=== PATIENT | male | born 1965 ===

== ENCOUNTER 2023-03-04 02:28 | Emergency (ER) | payer OTHER, SELFPAY ==
[2023-03-04] VITALS (45 sets, daily range): BP systolic 93–150; BP diastolic 65–100; PULSE 109–134; RESP 18–34; TEMP 36.7; O2SAT 87–97; BMI 46.7
--- NOTE | 2023-03-04 02:31 | ED.GENADULT ---
HPI - General Adult <Cathie Grubbs DO - Last Filed: 03/06/23 23:47> General Chief complaint: Shortness of Breath/Dyspnea Stated complaint: asthma Time Seen by Provider: 03/04/23 02:31 Source: patient Mode of arrival: Ambulatory Limitations: no limitations History of Present Illness HPI narrative: 57-year-old male without prior cardiac history. States that several weeks ago he started to have problems breathing. Was having some wheezing. Saw his primary provider. States he was given a nebulizer and also inhalers and a referral to see a maintenance inspector. He is never had a chest x-ray or CT scan of his chest. He states that a couple days ago he started to have worsening problems breathing that has progressively worsened over the past several hours. No coughing. No fevers. He states he does feel like he is having some bloating in his abdomen. He denies any chest pain. No recent travel. No fevers. No sinus congestion. He states he is not been tested for viral illnesses. He tried his nebulizers and inhalers at home without much improvement. He states he is feeling like his heart is racing and is very shaky because of the albuterol. Related Data Home Medications Medication Instructions Recorded Confirmed lisinopril 03/04/23 Allergies Allergy/AdvReac Type Severity Reaction Status Date / Time No Known Drug Allergies Allergy Verified 03/04/23 02:56 Review of Systems <DO Ling Joseph Last Filed: 03/06/23 23:47> Review of Systems ROS Unobtainable: All systems reviewed & are unremarkable except as noted in HPI and below Patient History <DO Ling Joseph Last Filed: 03/06/23 23:47> Medical History Hypertension Social History Smoking Status: Never smoker Exam <DO Ling Joseph Last Filed: 03/06/23 23:47> Initial Vital Signs Initial Vital Signs: Vital Signs Temperature 98.1 F 03/04/23 02:36 Pulse Rate 125 H 03/04/23 02:36 Respiratory Rate 28 H 03/04/23 02:36 Blood Pressure 129/91 H 03/04/23 02:36 Pulse Oximetry 94 03/04/23 02:36 Oxygen Delivery Method Room Air 03/04/23 02:36 Const General: cooperative, comfortable and No ill appearing HENMT Head: normal to inspection and normocephalic Resp Effort & Inspection: respiratory distress and tachypneic Auscultation: wheezes Cardio Rate: tachycardic Rhythm: regular rhythm GI Inspection: normal to inspection and non-distended Skin General: no rashes or lesions noted Neuro General: patient alert, patient awake, patient oriented x3 and moves all extremities Speech: speech normal Gait: normal gait Extrem General: No edema <Marga Marie, DO - Last Filed: 03/04/23 19:24> Initial Vital Signs Initial Vital Signs: Vital Signs Temperature 98.1 F 03/04/23 02:36 Pulse Rate 125 H 03/04/23 02:36 Respiratory Rate 28 H 03/04/23 02:36 Blood Pressure 129/91 H 03/04/23 02:36 Pulse Oximetry 94 03/04/23 02:36 Oxygen Delivery Method Room Air 03/04/23 02:36 Course <Cathie Grubbs DO - Last Filed: 03/06/23 23:47> Orders Ordered: Discontinued Medications Acetaminophen (Acetaminophen 325 Mg Tablet) 650 mg PO NOW ONE Stop: 03/04/23 18:20 Last Admin: 03/04/23 19:04 Dose: 650 mg Documented By: HEATHER Albuterol/Ipratropium (Albuterol/Ipratropium 3 Ml Ampul) 3 ml INH NOW ONE Stop: 03/04/23 02:38 Last Admin: 03/04/23 02:45 Dose: 3 ml Documented By: CHAU Aspirin (Aspirin 81 Mg Chew Tab) 324 mg PO NOW ONE Stop: 03/04/23 03:43 Last Admin: 03/04/23 04:02 Dose: 324 mg Documented By: JOE Diazepam (Diazepam 5 Mg Tablet) 5 mg PO NOW ONE Stop: 03/04/23 18:20 Last Admin: 03/04/23 19:04 Dose: 5 mg Documented By: HEATHER Furosemide (Furosemide 40 Mg/4 Ml Vial) 40 mg IV NOW ONE Stop: 03/04/23 03:49 Last Admin: 03/04/23 03:58 Dose: 40 mg Documented By: JOE Furosemide (Furosemide 40 Mg/4 Ml Vial) 40 mg IV NOW ONE Stop: 03/04/23 14:30 Last Admin: 03/04/23 14:47 Dose: 40 mg Documented By: HEATHER Heparin Sodium (Porcine) (Heparin 5,000 Unit/Ml Vial) 5,000 unit IV NOW ONE Stop: 03/04/23 03:50 Last Admin: 03/04/23 03:59 Dose: 5,000 unit Documented By: JOE Azithromycin 500 mg/ Dextrose 250 mls @ 250 mls/hr IV NOW ONE Stop: 03/04/23 03:44 Last Infusion: 03/04/23 06:35 Dose: 0 mls/hr Documented By: Admin: 03/04/23 04:51 Dose: 250 mls/hr Documented By: JOE Ceftriaxone Sodium 1,000 mg/ (Sodium Chloride) 100 mls @ 200 mls/hr IV NOW ONE Stop: 03/04/23 03:44 Last Infusion: 03/04/23 05:39 Dose: 0 mls/hr Documented By: Admin: 03/04/23 03:58 Dose: 200 mls/hr Documented By: JOE Heparin Sodium/Dextrose (Heparin Drip) 25,000 unit in 500 mls @ 20 mls/hr IV CONT KARI; Protocol Last Titration: 03/04/23 16:30 Dose: 1,050 units/hr, 21 mls/hr Documented By: HEATHER Co-signed By: COLETTE Admin: 03/04/23 04:09 Dose: 1,000 units/hr, 20 mls/hr Documented By: JOE Co-signed By: TEDDY Methylprednisolone (Methylprednisolone 125 Mg/2 Ml Vial) 125 mg IV NOW ONE Stop: 03/04/23 02:38 Last Admin: 03/04/23 02:55 Dose: 125 mg Documented By: JOE Vital Signs Vital signs: Vital Signs - 8 hr 03/04/23 11:29 03/04/23 11:29 03/04/23 11:30 Pulse Rate 113 H Respiratory Rate 25 H Blood Pressure 119/87 121/88 Pulse Oximetry 96 Oxygen Delivery Method Oxygen Flow Rate 03/04/23 11:30 03/04/23 12:00 03/04/23 12:00 Pulse Rate 116 H 113 H Respiratory Rate 25 H 25 H Blood Pressure 119/81 Pulse Oximetry 96 96 Oxygen Delivery Method Oxygen Flow Rate 03/04/23 12:30 03/04/23 12:40 03/04/23 12:40 Pulse Rate 120 H 116 H Respiratory Rate 26 H 24 Blood Pressure 132/100 H Pulse Oximetry 96 96 Oxygen Delivery Method Oxygen Flow Rate 03/04/23 13:00 03/04/23 13:00 03/04/23 13:30 Pulse Rate 109 H Respiratory Rate 29 H Blood Pressure 134/97 H 137/98 H Pulse Oximetry 97 Oxygen Delivery Method Oxygen Flow Rate 03/04/23 13:30 03/04/23 14:00 03/04/23 14:00 Pulse Rate 112 H 112 H Respiratory Rate 26 H 29 H Blood Pressure 124/89 Pulse Oximetry 93 94 Oxygen Delivery Method Oxygen Flow Rate 03/04/23 14:30 03/04/23 15:00 03/04/23 15:00 Pulse Rate 114 H 117 H Respiratory Rate 32 H 20 Blood Pressure 142/89 H Pulse Oximetry 95 96 Oxygen Delivery Method Nasal Cannula Oxygen Flow Rate 2 03/04/23 15:30 03/04/23 16:00 03/04/23 16:00 Pulse Rate 118 H 120 H Respiratory Rate 25 H 24 Blood Pressure 131/85 Pulse Oximetry 95 95 Oxygen Delivery Method Oxygen Flow Rate 03/04/23 16:30 03/04/23 17:00 03/04/23 17:30 Pulse Rate 120 H 130 H 121 H Respiratory Rate 20 27 H 22 Blood Pressure Pulse Oximetry 96 95 96 Oxygen Delivery Method Nasal Cannula Nasal Cannula Oxygen Flow Rate 2 2 03/04/23 18:00 03/04/23 18:30 03/04/23 19:00 Pulse Rate 114 H 124 H 125 H Respiratory Rate 26 H 28 H 26 H Blood Pressure Pulse Oximetry 94 96 96 Oxygen Delivery Method Nasal Cannula Nasal Cannula Oxygen Flow Rate 2 2 <Marga Marie, - Last Filed: 03/04/23 19:24> Orders Ordered: Discontinued Medications Acetaminophen (Acetaminophen 325 Mg Tablet) 650 mg PO NOW ONE Stop: 03/04/23 18:20 Last Admin: 03/04/23 19:04 Dose: 650 mg Documented By: HEATHER Albuterol/Ipratropium (Albuterol/Ipratropium 3 Ml Ampul) 3 ml INH NOW ONE Stop: 03/04/23 02:38 Last Admin: 03/04/23 02:45 Dose: 3 ml Documented By: CHAU Aspirin (Aspirin 81 Mg Chew Tab) 324 mg PO NOW ONE Stop: 03/04/23 03:43 Last Admin: 03/04/23 04:02 Dose: 324 mg Documented By: JOE Diazepam (Diazepam 5 Mg Tablet) 5 mg PO NOW ONE Stop: 03/04/23 18:20 Last Admin: 03/04/23 19:04 Dose: 5 mg Documented By: HEATHER Furosemide (Furosemide 40 Mg/4 Ml Vial) 40 mg IV NOW ONE Stop: 03/04/23 03:49 Last Admin: 03/04/23 03:58 Dose: 40 mg Documented By: JOE Furosemide (Furosemide 40 Mg/4 Ml Vial) 40 mg IV NOW ONE Stop: 03/04/23 14:30 Last Admin: 03/04/23 14:47 Dose: 40 mg Documented By: HEATHER Heparin Sodium (Porcine) (Heparin 5,000 Unit/Ml Vial) 5,000 unit IV NOW ONE Stop: 03/04/23 03:50 Last Admin: 03/04/23 03:59 Dose: 5,000 unit Documented By: JOE Azithromycin 500 mg/ Dextrose 250 mls @ 250 mls/hr IV NOW ONE Stop: 03/04/23 03:44 Last Infusion: 03/04/23 06:35 Dose: 0 mls/hr Documented By: Admin: 03/04/23 04:51 Dose: 250 mls/hr Documented By: JOE Ceftriaxone Sodium 1,000 mg/ (Sodium Chloride) 100 mls @ 200 mls/hr IV NOW ONE Stop: 03/04/23 03:44 Last Infusion: 03/04/23 05:39 Dose: 0 mls/hr Documented By: Admin: 03/04/23 03:58 Dose: 200 mls/hr Documented By: JOE Heparin Sodium/Dextrose (Heparin Drip) 25,000 unit in 500 mls @ 20 mls/hr IV CONT KARI; Protocol Last Titration: 03/04/23 16:30 Dose: 1,050 units/hr, 21 mls/hr Documented By: HEATHER Co-signed By: COLETTE Admin: 03/04/23 04:09 Dose: 1,000 units/hr, 20 mls/hr Documented By: JOE Co-signed By: TEDDY Methylprednisolone (Methylprednisolone 125 Mg/2 Ml Vial) 125 mg IV NOW ONE Stop: 03/04/23 02:38 Last Admin: 03/04/23 02:55 Dose: 125 mg Documented By: JOE Vital Signs Vital signs: Vital Signs - 8 hr 03/04/23 11:29 03/04/23 11:29 03/04/23 11:30 Pulse Rate 113 H Respiratory Rate 25 H Blood Pressure 119/87 121/88 Pulse Oximetry 96 Oxygen Delivery Method Oxygen Flow Rate 03/04/23 11:30 03/04/23 12:00 03/04/23 12:00 Pulse Rate 116 H 113 H Respiratory Rate 25 H 25 H Blood Pressure 119/81 Pulse Oximetry 96 96 Oxygen Delivery Method Oxygen Flow Rate 03/04/23 12:30 03/04/23 12:40 03/04/23 12:40 Pulse Rate 120 H 116 H Respiratory Rate 26 H 24 Blood Pressure 132/100 H Pulse Oximetry 96 96 Oxygen Delivery Method Oxygen Flow Rate 03/04/23 13:00 03/04/23 13:00 03/04/23 13:30 Pulse Rate 109 H Respiratory Rate 29 H Blood Pressure 134/97 H 137/98 H Pulse Oximetry 97 Oxygen Delivery Method Oxygen Flow Rate 03/04/23 13:30 03/04/23 14:00 03/04/23 14:00 Pulse Rate 112 H 112 H Respiratory Rate 26 H 29 H Blood Pressure 124/89 Pulse Oximetry 93 94 Oxygen Delivery Method Oxygen Flow Rate 03/04/23 14:30 03/04/23 15:00 03/04/23 15:00 Pulse Rate 114 H 117 H Respiratory Rate 32 H 20 Blood Pressure 142/89 H Pulse Oximetry 95 96 Oxygen Delivery Method Nasal Cannula Oxygen Flow Rate 2 03/04/23 15:30 03/04/23 16:00 03/04/23 16:00 Pulse Rate 118 H 120 H Respiratory Rate 25 H 24 Blood Pressure 131/85 Pulse Oximetry 95 95 Oxygen Delivery Method Oxygen Flow Rate 03/04/23 16:30 03/04/23 17:00 03/04/23 17:30 Pulse Rate 120 H 130 H 121 H Respiratory Rate 20 27 H 22 Blood Pressure Pulse Oximetry 96 95 96 Oxygen Delivery Method Nasal Cannula Nasal Cannula Oxygen Flow Rate 2 2 03/04/23 18:00 03/04/23 18:30 03/04/23 19:00 Pulse Rate 114 H 124 H 125 H Respiratory Rate 26 H 28 H 26 H Blood Pressure Pulse Oximetry 94 96 96 Oxygen Delivery Method Nasal Cannula Nasal Cannula Oxygen Flow Rate 2 2 Medical Decision Making <Cathie Grubbs DO - Last Filed: 03/06/23 23:47> Medical Records Medical records reviewed: Yes I reviewed the patient's medical records. Lab Data Lab results reviewed: Yes I reviewed the patient's lab results. 03/04/23 14:39 03/04/23 14:39 Labs: Lab Results 03/04/23 03/04/23 03/04/23 Range/Units 02:45 02:45 02:45 WBC 16.0 H (4.5-11.0) X10^3/uL RBC 5.01 (4.5-5.9) X10^6/uL Hgb 13.7 (13.5-17.5) g/dL Hct 40.8 L (41-53) % MCV 81.4 (80-100) fL MCH 27.4 (26-34) PG MCHC 33.7 (30-36) % RDW 13.6 (11.6-14.8) % Plt Count 350 (150-400) X10^3/uL Neut % (Auto) 70.7 (50-75) % Lymph % (Auto) 15.9 L (25-40) % [place] % (Auto) 10.5 (3-14) % Eos % (Auto) 1.9 L (2-4) % Baso % (Auto) 1.0 (0-2) % Neut # (Auto) 83876 H (8414-7571) /uL Lymph # (Auto) 2500 (8125-2180) /uL [place] # (Auto) 1700 H (0-900) /uL Eos # (Auto) 300 (0-450) /uL Baso # (Auto) 200 H (0-100) /uL PT (10.1-12.7) SECONDS INR (0.9-1.3) APTT (26-36) SECONDS Sodium 134 L (137-145) mmol/L Potassium 3.8 (3.4-5.1) mmol/L Chloride 103 (98-107) mmol/L Carbon Dioxide 23 (22-32) mmol/L BUN 10 (9-20) mg/dL Creatinine 0.83 (0.66-1.25) mg/dL Estimated GFR > 60 (>60) mL/min BUN/Creatinine Ratio 12.0 (6-22) Glucose 217 H (70-100) mg/dL Calcium 8.7 (8.4-10.2) mg/dL Magnesium 1.5 L (1.6-2.3) mg/dL Total Bilirubin 0.8 (0.2-1.3) mg/dL AST 31 (17-59) IU/L ALT 21 (<50) IU/L Alkaline Phosphatase 71 (38-126) U/L Total Creatine Kinase 606 H (55-170) U/L Troponin I 0.414 H* (0.01-0.034) ng/mL NT-Pro-B Natriuret Pep 5070 H (<125) pg/mL Total Protein 7.0 (6.3-8.2) g/dL Albumin 3.8 (3.5-5.0) g/dL Globulin 3.2 (1.7-4.1) g/dL Albumin/Globulin Ratio 1.2 (1.0-2.8) Lipase 61 (23-300) U/L Procalcitonin 0.08 (<0.5) ng/mL Chlamy pneumoniae PCR (Not Detect) Adenovirus (PCR) (Not Detect) B. pertussis DNA (PCR) (Not Detecte) B.parapertussis DNA PCR (Not Detecte) Coronavirus OC43 (PCR) (Not Detect) Coronavirus HKU1 (PCR) (Not Detect) Coronavirus 229E (PCR) (Not Detect) SARS-CoV-2 (PCR) (Not Detecte) Coronavirus NL63 (PCR) (Not Detect) Human Metapneumovir PCR (Not Detect) Influenza Type A (PCR) (Not Detect) Influenza Type B (PCR) (Not Detect) M. pneumoniae (PCR) (Not Detect) Parainfluenza 1 (PCR) (Not Detect) Parainfluenza 2 (PCR) (Not Detect) Parainfluenza 3 (PCR) (Not Detect) Parainfluenza 4 (PCR) (Not Detect) RSV (PCR) (Not Detect) Entero/Rhino (PCR) (Not Detect) 03/04/23 03/04/23 03/04/23 Range/Units 02:45 03:10 04:50 WBC (4.5-11.0) X10^3/uL RBC (4.5-5.9) X10^6/uL Hgb (13.5-17.5) g/dL Hct (41-53) % MCV (80-100) fL MCH (26-34) PG MCHC (30-36) % RDW (11.6-14.8) % Plt Count (150-400) X10^3/uL Neut % (Auto) (50-75) % Lymph % (Auto) (25-40) % [place] % (Auto) (3-14) % Eos % (Auto) (2-4) % Baso % (Auto) (0-2) % Neut # (Auto) (0038-2054) /uL Lymph # (Auto) (4809-5713) /uL [place] # (Auto) (0-900) /uL Eos # (Auto) (0-450) /uL Baso # (Auto) (0-100) /uL PT 12.2 (10.1-12.7) SECONDS INR 1.1 (0.9-1.3) APTT 30 (26-36) SECONDS Sodium (137-145) mmol/L Potassium (3.4-5.1) mmol/L Chloride (98-107) mmol/L Carbon Dioxide (22-32) mmol/L BUN (9-20) mg/dL Creatinine (0.66-1.25) mg/dL Estimated GFR (>60) mL/min BUN/Creatinine Ratio (6-22) Glucose (70-100) mg/dL Calcium (8.4-10.2) mg/dL Magnesium (1.6-2.3) mg/dL Total Bilirubin (0.2-1.3) mg/dL AST (17-59) IU/L ALT (<50) IU/L Alkaline Phosphatase (38-126) U/L Total Creatine Kinase 604 H (55-170) U/L Troponin I 0.467 H* (0.01-0.034) ng/mL NT-Pro-B Natriuret Pep (<125) pg/mL Total Protein (6.3-8.2) g/dL Albumin (3.5-5.0) g/dL Globulin (1.7-4.1) g/dL Albumin/Globulin Ratio (1.0-2.8) Lipase (23-300) U/L Procalcitonin (<0.5) ng/mL Chlamy pneumoniae PCR Not detected (Not Detect) Adenovirus (PCR) Not detected (Not Detect) B. pertussis DNA (PCR) Not detected (Not Detecte) B.parapertussis DNA PCR Not detected (Not Detecte) Coronavirus OC43 (PCR) Not detected (Not Detect) Coronavirus HKU1 (PCR) Not detected (Not Detect) Coronavirus 229E (PCR) Not detected (Not Detect) SARS-CoV-2 (PCR) Not detected (Not Detecte) Coronavirus NL63 (PCR) Not detected (Not Detect) Human Metapneumovir PCR Not detected (Not Detect) Influenza Type A (PCR) Not detected (Not Detect) Influenza Type B (PCR) Not detected (Not Detect) M. pneumoniae (PCR) Not detected (Not Detect) Parainfluenza 1 (PCR) Not detected (Not Detect) Parainfluenza 2 (PCR) Not detected (Not Detect) Parainfluenza 3 (PCR) Not detected (Not Detect) Parainfluenza 4 (PCR) Not detected (Not Detect) RSV (PCR) Not detected (Not Detect) Entero/Rhino (PCR) Not detected (Not Detect) 03/04/23 03/04/23 03/04/23 Range/Units 10:14 14:39 14:39 WBC 8.8 (4.5-11.0) X10^3/uL RBC 4.97 (4.5-5.9) X10^6/uL Hgb 13.9 (13.5-17.5) g/dL Hct 40.9 L (41-53) % MCV 82.1 (80-100) fL MCH 28.0 (26-34) PG MCHC 34.0 (30-36) % RDW 13.7 (11.6-14.8) % Plt Count 361 (150-400) X10^3/uL Neut % (Auto) 85.2 H (50-75) % Lymph % (Auto) 11.7 L (25-40) % [place] % (Auto) 2.5 L (3-14) % Eos % (Auto) 0.0 L (2-4) % Baso % (Auto) 0.6 (0-2) % Neut # (Auto) 7500 H (4602-2772) /uL Lymph # (Auto) 1000 L (9326-8627) /uL [place] # (Auto) 200 (0-900) /uL Eos # (Auto) 0 (0-450) /uL Baso # (Auto) 100 (0-100) /uL PT (10.1-12.7) SECONDS INR (0.9-1.3) APTT 35 D (26-36) SECONDS Sodium 133 L (137-145) mmol/L Potassium 4.0 (3.4-5.1) mmol/L Chloride 97 L (98-107) mmol/L Carbon Dioxide 26 (22-32) mmol/L BUN 10 (9-20) mg/dL Creatinine 0.68 (0.66-1.25) mg/dL Estimated GFR > 60 (>60) mL/min BUN/Creatinine Ratio 14.7 (6-22) Glucose 240 H (70-100) mg/dL Calcium 8.7 (8.4-10.2) mg/dL Magnesium (1.6-2.3) mg/dL Total Bilirubin (0.2-1.3) mg/dL AST (17-59) IU/L ALT (<50) IU/L Alkaline Phosphatase (38-126) U/L Total Creatine Kinase (55-170) U/L Troponin I 0.652 H* (0.01-0.034) ng/mL NT-Pro-B Natriuret Pep (<125) pg/mL Total Protein (6.3-8.2) g/dL Albumin (3.5-5.0) g/dL Globulin (1.7-4.1) g/dL Albumin/Globulin Ratio (1.0-2.8) Lipase (23-300) U/L Procalcitonin (<0.5) ng/mL Chlamy pneumoniae PCR (Not Detect) Adenovirus (PCR) (Not Detect) B. pertussis DNA (PCR) (Not Detecte) B.parapertussis DNA PCR (Not Detecte) Coronavirus OC43 (PCR) (Not Detect) Coronavirus HKU1 (PCR) (Not Detect) Coronavirus 229E (PCR) (Not Detect) SARS-CoV-2 (PCR) (Not Detecte) Coronavirus NL63 (PCR) (Not Detect) Human Metapneumovir PCR (Not Detect) Influenza Type A (PCR) (Not Detect) Influenza Type B (PCR) (Not Detect) M. pneumoniae (PCR) (Not Detect) Parainfluenza 1 (PCR) (Not Detect) Parainfluenza 2 (PCR) (Not Detect) Parainfluenza 3 (PCR) (Not Detect) Parainfluenza 4 (PCR) (Not Detect) RSV (PCR) (Not Detect) Entero/Rhino (PCR) (Not Detect) 03/04/23 Range/Units 16:27 WBC (4.5-11.0) X10^3/uL RBC (4.5-5.9) X10^6/uL Hgb (13.5-17.5) g/dL Hct (41-53) % MCV (80-100) fL MCH (26-34) PG MCHC (30-36) % RDW (11.6-14.8) % Plt Count (150-400) X10^3/uL Neut % (Auto) (50-75) % Lymph % (Auto) (25-40) % [place] % (Auto) (3-14) % Eos % (Auto) (2-4) % Baso % (Auto) (0-2) % Neut # (Auto) (8131-1880) /uL Lymph # (Auto) (5658-9296) /uL [place] # (Auto) (0-900) /uL Eos # (Auto) (0-450) /uL Baso # (Auto) (0-100) /uL PT (10.1-12.7) SECONDS INR (0.9-1.3) APTT 35 (26-36) SECONDS Sodium (137-145) mmol/L Potassium (3.4-5.1) mmol/L Chloride (98-107) mmol/L Carbon Dioxide (22-32) mmol/L BUN (9-20) mg/dL Creatinine (0.66-1.25) mg/dL Estimated GFR (>60) mL/min BUN/Creatinine Ratio (6-22) Glucose (70-100) mg/dL Calcium (8.4-10.2) mg/dL Magnesium (1.6-2.3) mg/dL Total Bilirubin (0.2-1.3) mg/dL AST (17-59) IU/L ALT (<50) IU/L Alkaline Phosphatase (38-126) U/L Total Creatine Kinase (55-170) U/L Troponin I (0.01-0.034) ng/mL NT-Pro-B Natriuret Pep (<125) pg/mL Total Protein (6.3-8.2) g/dL Albumin (3.5-5.0) g/dL Globulin (1.7-4.1) g/dL Albumin/Globulin Ratio (1.0-2.8) Lipase (23-300) U/L Procalcitonin (<0.5) ng/mL Chlamy pneumoniae PCR (Not Detect) Adenovirus (PCR) (Not Detect) B. pertussis DNA (PCR) (Not Detecte) B.parapertussis DNA PCR (Not Detecte) Coronavirus OC43 (PCR) (Not Detect) Coronavirus HKU1 (PCR) (Not Detect) Coronavirus 229E (PCR) (Not Detect) SARS-CoV-2 (PCR) (Not Detecte) Coronavirus NL63 (PCR) (Not Detect) Human Metapneumovir PCR (Not Detect) Influenza Type A (PCR) (Not Detect) Influenza Type B (PCR) (Not Detect) M. pneumoniae (PCR) (Not Detect) Parainfluenza 1 (PCR) (Not Detect) Parainfluenza 2 (PCR) (Not Detect) Parainfluenza 3 (PCR) (Not Detect) Parainfluenza 4 (PCR) (Not Detect) RSV (PCR) (Not Detect) Entero/Rhino (PCR) (Not Detect) Imaging Data Chest x-ray: Radiologist's Impression: Bilateral areas of airspace disease likely representing multifocal pneumonia. Posttreatment follow-up is recommended to assess for resolution CT scan - chest: Radiologist's Impression: No pulmonary embolism or aortic dissection Multifocal bilateral pulmonary infiltrates. Recommend 3 month follow-up CT scan Bilateral pulmonary nodules measuring up to 8 mm Thickening of the inner and interlobar septa and small bilateral pleural effusions suggesting pulmonary edema/volume overload Ectasia of the ascending thoracic aorta which measures 4.4 cm in maximum anterior-posterior dimension. ECG Data Interpretation: Sinus tachycardia Ventricular rate 122 LVH Normal QRS Normal QTC ST depressions lead 1, aVL, V6 No ST elevations MDM Narrative Medical decision making narrative: Patient has no prior cardiac history and only recently had a development of a respiratory issue. He stated that he did some cardiac workup recently but this was performed at an outside facility in [facility]. We will attempt to obtain these records. Here in the emergency department he did have an elevated BNP. No prior history of heart failure. He was given Lasix and did diurese afterwards. He was given a nebulizer treatment with only minimal if any improvement. Chest x-ray concerning for patchy bilateral pneumonia. Because of this he was given azithromycin and Rocephin. He does have a leukocytosis which supports an infectious source. Patient's troponin is also elevated. He has no chest pain. Does have T-wave inversions in lead 1 aVL and V6 without ST elevations. He was given an aspirin. Was started on heparin. CTA did not show any signs of pneumonia. It did show bilateral pulmonary nodules and also confirms the infiltrates. Discussed the case with Dr. Gilbert with cardiology who recommended echocardiogram and treatment of his fluid overload and pneumonia prior to any transfer. Care turned over to Dr. marie to follow-up and disposition. <Marga Marie, - Last Filed: 03/04/23 19:24> Lab Data Labs: Lab Results 03/04/23 03/04/23 03/04/23 Range/Units 02:45 02:45 02:45 WBC 16.0 H (4.5-11.0) X10^3/uL RBC 5.01 (4.5-5.9) X10^6/uL Hgb 13.7 (13.5-17.5) g/dL Hct 40.8 L (41-53) % MCV 81.4 (80-100) fL MCH 27.4 (26-34) PG MCHC 33.7 (30-36) % RDW 13.6 (11.6-14.8) % Plt Count 350 (150-400) X10^3/uL Neut % (Auto) 70.7 (50-75) % Lymph % (Auto) 15.9 L (25-40) % [place] % (Auto) 10.5 (3-14) % Eos % (Auto) 1.9 L (2-4) % Baso % (Auto) 1.0 (0-2) % Neut # (Auto) 89485 H (0609-3031) /uL Lymph # (Auto) 2500 (4490-1742) /uL [place] # (Auto) 1700 H (0-900) /uL Eos # (Auto) 300 (0-450) /uL Baso # (Auto) 200 H (0-100) /uL PT (10.1-12.7) SECONDS INR (0.9-1.3) APTT (26-36) SECONDS Sodium 134 L (137-145) mmol/L Potassium 3.8 (3.4-5.1) mmol/L Chloride 103 (98-107) mmol/L Carbon Dioxide 23 (22-32) mmol/L BUN 10 (9-20) mg/dL Creatinine 0.83 (0.66-1.25) mg/dL Estimated GFR > 60 (>60) mL/min BUN/Creatinine Ratio 12.0 (6-22) Glucose 217 H (70-100) mg/dL Calcium 8.7 (8.4-10.2) mg/dL Magnesium 1.5 L (1.6-2.3) mg/dL Total Bilirubin 0.8 (0.2-1.3) mg/dL AST 31 (17-59) IU/L ALT 21 (<50) IU/L Alkaline Phosphatase 71 (38-126) U/L Total Creatine Kinase 606 H (55-170) U/L Troponin I 0.414 H* (0.01-0.034) ng/mL NT-Pro-B Natriuret Pep 5070 H (<125) pg/mL Total Protein 7.0 (6.3-8.2) g/dL Albumin 3.8 (3.5-5.0) g/dL Globulin 3.2 (1.7-4.1) g/dL Albumin/Globulin Ratio 1.2 (1.0-2.8) Lipase 61 (23-300) U/L Procalcitonin 0.08 (<0.5) ng/mL Chlamy pneumoniae PCR (Not Detect) Adenovirus (PCR) (Not Detect) B. pertussis DNA (PCR) (Not Detecte) B.parapertussis DNA PCR (Not Detecte) Coronavirus OC43 (PCR) (Not Detect) Coronavirus HKU1 (PCR) (Not Detect) Coronavirus 229E (PCR) (Not Detect) SARS-CoV-2 (PCR) (Not Detecte) Coronavirus NL63 (PCR) (Not Detect) Human Metapneumovir PCR (Not Detect) Influenza Type A (PCR) (Not Detect) Influenza Type B (PCR) (Not Detect) M. pneumoniae (PCR) (Not Detect) Parainfluenza 1 (PCR) (Not Detect) Parainfluenza 2 (PCR) (Not Detect) Parainfluenza 3 (PCR) (Not Detect) Parainfluenza 4 (PCR) (Not Detect) RSV (PCR) (Not Detect) Entero/Rhino (PCR) (Not Detect) 03/04/23 03/04/23 03/04/23 Range/Units 02:45 03:10 04:50 WBC (4.5-11.0) X10^3/uL RBC (4.5-5.9) X10^6/uL Hgb (13.5-17.5) g/dL Hct (41-53) % MCV (80-100) fL MCH (26-34) PG MCHC (30-36) % RDW (11.6-14.8) % Plt Count (150-400) X10^3/uL Neut % (Auto) (50-75) % Lymph % (Auto) (25-40) % [place] % (Auto) (3-14) % Eos % (Auto) (2-4) % Baso % (Auto) (0-2) % Neut # (Auto) (3663-7866) /uL Lymph # (Auto) (5300-2313) /uL [place] # (Auto) (0-900) /uL Eos # (Auto) (0-450) /uL Baso # (Auto) (0-100) /uL PT 12.2 (10.1-12.7) SECONDS INR 1.1 (0.9-1.3) APTT 30 (26-36) SECONDS Sodium (137-145) mmol/L Potassium (3.4-5.1) mmol/L Chloride (98-107) mmol/L Carbon Dioxide (22-32) mmol/L BUN (9-20) mg/dL Creatinine (0.66-1.25) mg/dL Estimated GFR (>60) mL/min BUN/Creatinine Ratio (6-22) Glucose (70-100) mg/dL Calcium (8.4-10.2) mg/dL Magnesium (1.6-2.3) mg/dL Total Bilirubin (0.2-1.3) mg/dL AST (17-59) IU/L ALT (<50) IU/L Alkaline Phosphatase (38-126) U/L Total Creatine Kinase 604 H (55-170) U/L Troponin I 0.467 H* (0.01-0.034) ng/mL NT-Pro-B Natriuret Pep (<125) pg/mL Total Protein (6.3-8.2) g/dL Albumin (3.5-5.0) g/dL Globulin (1.7-4.1) g/dL Albumin/Globulin Ratio (1.0-2.8) Lipase (23-300) U/L Procalcitonin (<0.5) ng/mL Chlamy pneumoniae PCR Not detected (Not Detect) Adenovirus (PCR) Not detected (Not Detect) B. pertussis DNA (PCR) Not detected (Not Detecte) B.parapertussis DNA PCR Not detected (Not Detecte) Coronavirus OC43 (PCR) Not detected (Not Detect) Coronavirus HKU1 (PCR) Not detected (Not Detect) Coronavirus 229E (PCR) Not detected (Not Detect) SARS-CoV-2 (PCR) Not detected (Not Detecte) Coronavirus NL63 (PCR) Not detected (Not Detect) Human Metapneumovir PCR Not detected (Not Detect) Influenza Type A (PCR) Not detected (Not Detect) Influenza Type B (PCR) Not detected (Not Detect) M. pneumoniae (PCR) Not detected (Not Detect) Parainfluenza 1 (PCR) Not detected (Not Detect) Parainfluenza 2 (PCR) Not detected (Not Detect) Parainfluenza 3 (PCR) Not detected (Not Detect) Parainfluenza 4 (PCR) Not detected (Not Detect) RSV (PCR) Not detected (Not Detect) Entero/Rhino (PCR) Not detected (Not Detect) 03/04/23 03/04/23 03/04/23 Range/Units 10:14 14:39 14:39 WBC 8.8 (4.5-11.0) X10^3/uL RBC 4.97 (4.5-5.9) X10^6/uL Hgb 13.9 (13.5-17.5) g/dL Hct 40.9 L (41-53) % MCV 82.1 (80-100) fL MCH 28.0 (26-34) PG MCHC 34.0 (30-36) % RDW 13.7 (11.6-14.8) % Plt Count 361 (150-400) X10^3/uL Neut % (Auto) 85.2 H (50-75) % Lymph % (Auto) 11.7 L (25-40) % Seward % (Auto) 2.5 L (3-14) % Eos % (Auto) 0.0 L (2-4) % Baso % (Auto) 0.6 (0-2) % Neut # (Auto) 7500 H (7085-0535) /uL Lymph # (Auto) 1000 L (1657-1073) /uL Seward # (Auto) 200 (0-900) /uL Eos # (Auto) 0 (0-450) /uL Baso # (Auto) 100 (0-100) /uL PT (10.1-12.7) SECONDS INR (0.9-1.3) APTT 35 D (26-36) SECONDS Sodium 133 L (137-145) mmol/L Potassium 4.0 (3.4-5.1) mmol/L Chloride 97 L (98-107) mmol/L Carbon Dioxide 26 (22-32) mmol/L BUN 10 (9-20) mg/dL Creatinine 0.68 (0.66-1.25) mg/dL Estimated GFR > 60 (>60) mL/min BUN/Creatinine Ratio 14.7 (6-22) Glucose 240 H (70-100) mg/dL Calcium 8.7 (8.4-10.2) mg/dL Magnesium (1.6-2.3) mg/dL Total Bilirubin (0.2-1.3) mg/dL AST (17-59) IU/L ALT (<50) IU/L Alkaline Phosphatase (38-126) U/L Total Creatine Kinase (55-170) U/L Troponin I 0.652 H* (0.01-0.034) ng/mL NT-Pro-B Natriuret Pep (<125) pg/mL Total Protein (6.3-8.2) g/dL Albumin (3.5-5.0) g/dL Globulin (1.7-4.1) g/dL Albumin/Globulin Ratio (1.0-2.8) Lipase (23-300) U/L Procalcitonin (<0.5) ng/mL Chlamy pneumoniae PCR (Not Detect) Adenovirus (PCR) (Not Detect) B. pertussis DNA (PCR) (Not Detecte) B.parapertussis DNA PCR (Not Detecte) Coronavirus OC43 (PCR) (Not Detect) Coronavirus HKU1 (PCR) (Not Detect) Coronavirus 229E (PCR) (Not Detect) SARS-CoV-2 (PCR) (Not Detecte) Coronavirus NL63 (PCR) (Not Detect) Human Metapneumovir PCR (Not Detect) Influenza Type A (PCR) (Not Detect) Influenza Type B (PCR) (Not Detect) M. pneumoniae (PCR) (Not Detect) Parainfluenza 1 (PCR) (Not Detect) Parainfluenza 2 (PCR) (Not Detect) Parainfluenza 3 (PCR) (Not Detect) Parainfluenza 4 (PCR) (Not Detect) RSV (PCR) (Not Detect) Entero/Rhino (PCR) (Not Detect) 03/04/23 Range/Units 16:27 WBC (4.5-11.0) X10^3/uL RBC (4.5-5.9) X10^6/uL Hgb (13.5-17.5) g/dL Hct (41-53) % MCV (80-100) fL MCH (26-34) PG MCHC (30-36) % RDW (11.6-14.8) % Plt Count (150-400) X10^3/uL Neut % (Auto) (50-75) % Lymph % (Auto) (25-40) % Seward % (Auto) (3-14) % Eos % (Auto) (2-4) % Baso % (Auto) (0-2) % Neut # (Auto) (0292-4441) /uL Lymph # (Auto) (3433-6486) /uL Seward # (Auto) (0-900) /uL Eos # (Auto) (0-450) /uL Baso # (Auto) (0-100) /uL PT (10.1-12.7) SECONDS INR (0.9-1.3) APTT 35 (26-36) SECONDS Sodium (137-145) mmol/L Potassium (3.4-5.1) mmol/L Chloride (98-107) mmol/L Carbon Dioxide (22-32) mmol/L BUN (9-20) mg/dL Creatinine (0.66-1.25) mg/dL Estimated GFR (>60) mL/min BUN/Creatinine Ratio (6-22) Glucose (70-100) mg/dL Calcium (8.4-10.2) mg/dL Magnesium (1.6-2.3) mg/dL Total Bilirubin (0.2-1.3) mg/dL AST (17-59) IU/L ALT (<50) IU/L Alkaline Phosphatase (38-126) U/L Total Creatine Kinase (55-170) U/L Troponin I (0.01-0.034) ng/mL NT-Pro-B Natriuret Pep (<125) pg/mL Total Protein (6.3-8.2) g/dL Albumin (3.5-5.0) g/dL Globulin (1.7-4.1) g/dL Albumin/Globulin Ratio (1.0-2.8) Lipase (23-300) U/L Procalcitonin (<0.5) ng/mL Chlamy pneumoniae PCR (Not Detect) Adenovirus (PCR) (Not Detect) B. pertussis DNA (PCR) (Not Detecte) B.parapertussis DNA PCR (Not Detecte) Coronavirus OC43 (PCR) (Not Detect) Coronavirus HKU1 (PCR) (Not Detect) Coronavirus 229E (PCR) (Not Detect) SARS-CoV-2 (PCR) (Not Detecte) Coronavirus NL63 (PCR) (Not Detect) Human Metapneumovir PCR (Not Detect) Influenza Type A (PCR) (Not Detect) Influenza Type B (PCR) (Not Detect) M. pneumoniae (PCR) (Not Detect) Parainfluenza 1 (PCR) (Not Detect) Parainfluenza 2 (PCR) (Not Detect) Parainfluenza 3 (PCR) (Not Detect) Parainfluenza 4 (PCR) (Not Detect) RSV (PCR) (Not Detect) Entero/Rhino (PCR) (Not Detect) Imaging Data ECHO: Radiologist's Impression: Aidan Prajapati??57??M??1965 ? Allergy/Adv: No Known Drug Allergies Close Echocardiogram (Signed) Sukhdeep Fraire - Today 05:[address] [address] Echocardiography Report Signed Patient: Aidan Prajapati MR#: [id number] : 1965 Acct:[id number] Age/Sex: 57 / M Date of Service: 03/04/23 Loc: ED Accession Number: [id number] ?? Procedure: EC echo complete with contrast Ordering Provider: Cathie Grubbs D.O. ? [facility]---------+? [facility]? +---------+ : ? :? [address] ? : ? : : ? :? [place], [place] ? : ? : : ? :? [address] ? : ? : : ? : ? Phone: [phone]? : ? : [phone]? [phone]? +---------+ ? Echocardiogram Report + + :Name: AIDAN PRAJAPATI ? Study Date: 03/04/2023 ? Height: 66 in? : :[facility] ? ? ReadingLocation: ? Weight: 290 lb : : ? Gender: Male ? BSA: 2.3 m2? ? : :: 1965? Age: 57 yrs? BP: 130/95 mmHg: :Reason For Study: CONGESTIVE HEART FAILURE, NSTEMI ? : :Ordering Physician: LICHA,? : :CATHIE? Performed By: Saray Jhaveri? : :Referring: CATHIE GRUBBS ? : + + Interpretation Summary The left ventricle is moderately dilated. Left ventricular ejection fraction is estimated to be 30 +/- 5%. There is severe global hypokinesis of the left ventricle. ? The right ventricle is at the upper limits of normal in size. The right ventricular systolic function is normal. ? The aortic valve is bicuspid. The aortic valve is severely calcified. The peak aortic velocity is 4.1 m/sec. The aortic valve mean gradient is 45 mmHg. The calculated aortic valve area is 0.58 cm2. sev ratio: 0.19 MUKESH indexed to BSA (cm^2/m^2): 0.28 There is severe-critical aortic stenosis. ? The ascending aorta is mild-moderately enlarged. ? The IVC is dilated (diameter is greater than 2.1 cm) and it collapses less than 50% with a sniff. This suggests a high right atrial pressure of 15 mm Hg. ? Procedure: ? A two-dimensional transthoracic echocardiogram with color flow and Doppler was performed. The study quality was technically difficult. There is no prior echocardiogram noted for this patient. A contrast injection of Definity was performed to improve assessment of LV function. The patient was in sinus tachycardia with heart rates between 114-122 bpm during the exam. Left Ventricle: ? The left ventricle is moderately dilated. The estimated left ventricular end diastolic volume is 215 ml. Left ventricular wall thickness is mildly increased. There is no thrombus. Left ventricular ejection fraction is estimated to be 30 +/- 5%. There is severe global hypokinesis of the left ventricle. Diastolic function could not be accurately assessed due to tachycardia. Right Ventricle: ? The right ventricle is at the upper limits of normal in size. The right ventricular systolic function is normal. Atria: ? The left atrium is moderately dilated. Right atrial size is normal. There is no Doppler evidence for an interatrial shunt. Mitral Valve: ? The mitral valve leaflets appear borderline thickened, but open well. There is mild mitral annular calcification. There is mild mitral regurgitation. Aortic Valve: ? The aortic valve is severely calcified. The aortic valve is bicuspid. There is severe aortic stenosis. The peak aortic velocity is 4.1 m/sec. The aortic valve mean gradient is 45 mmHg. The calculated aortic valve area is 0.58 cm2. No aortic regurgitation is present. Tricuspid Valve: ? The tricuspid valve is normal in structure and function. There is trace tricuspid regurgitation. Pulmonary artery pressures cannot be estimated because of the lack of a measurable TR jet velocity. Pulmonic Valve: ? The pulmonic valve is not well visualized. There is no pulmonic valvular regurgitation. Great Vessels: ? The aortic root is normal size. The ascending aorta is mild- moderately enlarged. The IVC is dilated (diameter is greater than 2.1 cm) and it collapses less than 50% with a sniff. This suggests a high right atrial pressure of 15 mm Hg. Pericardium/ Pleura ? There is no pericardial effusion. There is an anterior echo-free space consistent with a fat pad. There is no pleural effusion. ? MMode/2D Measurements & Calculations LVIDd: 6.3 cm? LVOT diam: 2.1 cm LVIDs: 5.4 cm? Ao root diam: 3.3 cm FS: 13.8 % ? asc Aorta Diam: 4.3 cm EPSS: 1.8 cm ? Ao Arch Diam (Prox Trans): 3.5 cm IVSd: 0.89 cm LVPWd: 1.2 cm LV sin. diameter/BSA (cm/m^2): 2.7 LV sys. diameter/BSA (cm/m^2): 2.3 ? LA A2 area: 27.1 cm2 ? RA long axis: 5.1 cm LA A4 area: 24.9 cm2 ? RA area: 16.6 cm2 LA length (vol): 6.1 cm? RA vol: 46.2 ml LA vol: 93.8 ml? RA : 19.7 ml/m2 LA vol index: 40.0 ml/m2 ? IVC diam: 2.3 cm ? RVD1 (basal): 4.2 cm TAPSE: 1.7 cm ? Doppler Measurements & Calculations Ao V2 max: 408.8 cm/sec ? LVOT Max Rian: 68.5 cm/sec Ao V2 mean: 327.8 cm/sec? LV V1 max P.9 mmHg Ao max P.9 mmHg? LV V1 VTI: 15.0 cm Ao mean P.4 mmHg ? MUKESH(I,D): 0.66 cm2 Ao V2 VTI: 79.0 cm? MUKESH(V,D): 0.58 cm2 ? sev ratio: 0.19 ? MUKESH indexed to BSA (cm^2/m^2): 0.28 ? MV E max rian: 151.9 cm/sec? PA V2 max: 97.7 cm/sec MV A max rian: 1.1 cm/sec? PA V2 mean: 69.9 cm/sec MV E/A: 136.8 ? PA mean P.1 mmHg Med Peak E' Rian: 10.7 cm/sec? ? ? PA pr(Accel): 34.5 mmHg E/E' med: 14.2 Lat Peak E' Rian: 15.6 cm/sec E/E' lat: 9.7 E/e' average: 12.0 MV dec time: 0.13 sec MVA(VTI): 1.9 cm2 ? MV V2 mean: 95.3 cm/sec ? SV(LVOT): 52.4 ml MV mean P.5 mmHg MV V2 VTI: 27.1 cm ? Reading Physician:09:26 AM [facility] Narrative Medical decision making narrative: Patient has no prior cardiac history and only recently had a development of a respiratory issue. He stated that he did some cardiac workup recently but this was performed at an outside facility in [facility]. We will attempt to obtain these records. Here in the emergency department he did have an elevated BNP. No prior history of heart failure. He was given Lasix and did diurese afterwards. He was given a nebulizer treatment with only minimal if any improvement. Chest x-ray concerning for patchy bilateral pneumonia. Because of this he was given azithromycin and Rocephin. He does have a leukocytosis which supports an infectious source. Patient's troponin is also elevated. He has no chest pain. Does have T-wave inversions in lead 1 aVL and V6 without ST elevations. He was given an aspirin. Was started on heparin. CTA did not show any signs of pneumonia. It did show bilateral pulmonary nodules and also confirms the infiltrates. Discussed the case with Dr. Gilbert with cardiology who recommended echocardiogram and treatment of his fluid overload and pneumonia prior to any transfer. Care turned over to Dr. marie to follow-up and disposition. 03/04/23 Jen: This is a 57-year-old male with a history of hypertension on lisinopril who is had several months of respiratory issues been using nebulizer increasingly with frequency. Patient states he has had a stress test in the past year which he states was negative and he was referred to pulmonology was supposed to have additional testing but started having increasing shortness of breath and found that his nebulizer isn't working, he started getting sweaty and stated his heart felt like it was pounding in his chest and felt very bad. The last 2 days has gotten much worse. He states he could not lay flat and was coughing up sometimes productive sputum. Patient states he has had sweats at night. Patient's was signed out to myself by Dr. Grubbs. Patient notes he is feeling much better this morning after treatment here in the emergency department he is received aspirin, Lasix, he is on heparin drip he is received IV antibiotics did have 1 DuoNeb which he states was not very helpful with the rest has significantly improved after diuresing about 2 L of fluid. Patient's workup shows a leukocytosis of 16, normal platelets and hemoglobin, coags are negative, respiratory panel is negative, patient's renal function appropriate with sodium of 134 glucose is 217, Mag slightly low 1.5 troponin was positive at 0.414 and trended upwards 2.467, BNP is 5000, procalcitonin is negative. Patient had CTA which is negative for pulmonary emboli does show some bilateral infiltrates multifocal, some bilateral pulmonary nodules as well as changes consistent with some pulmonary edema. Patient's EKG no priors for comparison but has some depression 1 aVL, V5 V6 questionable elevation in AVR. Patient patient having NSTEMI, heart failure may or may not be initiated by pneumonia versus concurrent disease. Dr. Fraire called patient's echo results, patient has critical aortic stenosis, EF of 30% +/-5% with global hypokinesis of the left ventricle. No pericardial effusion. Patient's troponin did trend somewhat up-to-date, the rest of his labs have been appropriate. Patient has not had any worsening symptoms throughout the day he drops his oxygen little when he falls asleep. Patient did have some cramping in his lower extremities ask for some Tylenol and we gave him dose of oral Valium. Patient was accepted at [facility] by Dr. Tenorio for transfer. Reviewed all patient's findings with him today and throughout the day. He did have an additional dose of Lasix. Patient signed out to Dr. Oneill while awaiting transport, patient leaving shortly within the next 1-2 hours. <Marga Marie, - Last Filed: 03/04/23 19:24> Critical Care Time Critical Care Time: Yes Total Critical Care Time: 50 Attestation: The high probability of a clinically significant, sudden or life threatening deterioration of the [cardiac, pulm] system(s) required my full and direct attention, intervention and personal management. The aggregate critical care time was [] minutes. This time is in addition to time spent performing reported procedures but includes the following: [x] Data Review and interpretation [x] Patient assessment and monitoring of vital signs [x] Documentation [x] Medication orders and management Discharge Plan Departure Patient Disposition: [facility] Clinical Impression: Pulmonary nodule, Aortic valve stenosis, critical, Acute congestive heart failure, Non-ST elevation SD (NSTEMI) Prescriptions: No Action lisinopril
--- NOTE | 2023-03-04 02:38 | DI.RAD.S_ITS ---
PROCEDURE: XR CHEST 1V INDICATIONS: SOB TECHNIQUE: One view of the chest was acquired. COMPARISON: [facility], CT, CT ANGIO CHEST PE PROTOCOL, 03/04/2023, 3:57. FINDINGS: Surgical changes and devices: None. Lungs and pleura: Focal opacities are present in the righ upper, t mid and lower lobes. Mediastinum: Mediastinal contours appear normal. Heart size is enlarged. Bones and chest wall: No suspicious bony lesions. Overlying soft tissues appear unremarkable. IMPRESSION: Right hemithorax opacities suggestive of pneumonia. Recommend interval followup to document resolution and exclude presence of underlying noninfectious/noninflammatory, potentially neoplastic mass. The above findings are concordant with preliminary report. Dictated by: Zoë Yost M.D. on 03/04/2023 at 8:20 Approved by: Zoë Yost M.D. on 03/04/2023 at 8:22
[2023-03-04] MEDS: ALBUTEROL/IPRATROPIUM 3 ML AMPUL INH (02:45)
[2023-03-04] MEDS: methylPREDNISolone 125 MG/2 ML VIAL IV (02:55)
[2023-03-04 02:59] LABS: Add Manual Diff / Slide Review NO; Basophils Absolute Auto 200 /uL (0-100); Eosinophils Absolute Auto 300 /uL (0-450); Eosinophils Percent Auto 1.9 % (2-4); Hematocrit 40.8 % (41-53); Hemoglobin 13.7 g/dL (13.5-17.5); Lymphocytes Absolute Auto 2500 /uL (1100-4500); Lymphocytes Percent Auto 15.9 % (25-40); Mean Corpuscular HGB Conc 33.7 % (30-36); Mean Corpuscular Hemoglobin 27.4 PG (26-34); Mean Corpuscular Volume 81.4 fL (80-100); Monocytes Absolute Auto 1700 /uL (0-900); Monocytes Percent Auto 10.5 % (3-14); Neutrophils Absolute Auto 11300 /uL (1500-7000); Neutrophils Percent Auto 70.7 % (50-75); Platelet Count 350 X10^3/uL (150-400); Red Blood Cell Count 5.01 X10^6/uL (4.5-5.9); Red Cell Distribution Width 13.6 % (11.6-14.8)
[2023-03-04 03:11] LABS: Alanine Aminotransferase 21 IU/L (<50); Albumin 3.8 g/dL (3.5-5.0); Albumin Globulin Ratio 1.2 (1.0-2.8); Alkaline Phosphatase 71 U/L (38-126); Aspartate Aminotransferase 31 IU/L (17-59); Bilirubin Total 0.8 mg/dL (0.2-1.3); Blood Urea Nitrogen 10 mg/dL (9-20); Calcium 8.7 mg/dL (8.4-10.2); Carbon Dioxide 23 mmol/L (22-32); Chloride 103 mmol/L (98-107); Creatine Kinase 606 U/L (55-170); Estimated Glomerular Filt Rate > 60 mL/min (>60); Globulin 3.2 g/dL (1.7-4.1); Glucose 217 mg/dL (70-100); HEMOLYSIS < 15 (0-50); Lipase 61 U/L (23-300); Magnesium 1.5 mg/dL (1.6-2.3); Potassium 3.8 mmol/L (3.4-5.1); Sodium 134 mmol/L (137-145)
[2023-03-04 03:22] LABS: NT-proBNP (BNP-Adult 18+) 5070 pg/mL (<125)
[2023-03-04 03:28] LABS: Procalcitonin 0.08 ng/mL (<0.5)
[2023-03-04 03:42] LABS: Troponin I 0.414 ng/mL (0.01-0.034)
--- NOTE | 2023-03-04 03:43 | DI.CT.S_ITS ---
PROCEDURE: CT ANGIO CHEST PE PROTOCOL INDICATIONS: Chest pain, shortness of breath, tachycardia TECHNIQUE: After the administration of intravenous contrast, 2 mm thick sections acquired from the pulmonary apices to the posterior costophrenic angles. 3-dimensional maximum intensity projection (MIP) coronal and sagittal reformats were then acquired through the thorax. For radiation dose reduction, the following was used: automated exposure control, adjustment of mA and/or kV according to patient size. COMPARISON: [facility], CR, XR CHEST 1V, 03/04/2023, 2:36. FINDINGS: Image quality: Excellent. Pulmonary arteries: Pulmonary arteries are normal in size, and demonstrate no intraluminal filling defects to suggest central pulmonary embolism. Lungs and pleura: Patchy ground-glass and consolidative opacity most pronounced in the right lung. Some of these opacities have a nodular appearance. Bilateral interlobular septal thickening. Central airways are clear. Small bilateral pleural effusions. No pneumothorax. Mediastinum: Heart size is normal, without pericardial effusion. Shotty appearing mediastinal and right hilar lymph nodes, favor reactive etiology. Ascending aorta measures of 4.2 cm, (). Esophagus is normal in caliber, without hiatal hernia. Bones and chest wall: No suspicious bony lesions. T6 compression fracture. Thyroid gland is unremarkable. No axillary or supraclavicular adenopathy. Abdomen: Visualized upper abdominal solid organs appear normal in the early arterial phase of enhancement. Hepatic steatosis. IMPRESSION: 1. No pulmonary embolism. 2. Multifocal pneumonia most pronounced in the right lung. Recommend follow-up to resolution. 3. Interlobular septal thickening. Small bilateral pleural effusions. Suspect superimposed fluid overload/CHF. 4. Shotty mediastinal and right hilar lymph nodes. Suspect reactive etiology. 5. Ascending aortic ectasia measuring 4.2 cm. 6. T6 compression fracture. 7. Hepatic steatosis. No significant discrepancy with the overnight preliminary interpretation. Dictated by: Taj Blank M.D. on 03/04/2023 at 8:26 Approved by: Taj Blank M.D. on 03/04/2023 at 8:38
[2023-03-04 03:57] LABS: INR 1.1 (0.9-1.3); Prothrombin Time 12.2 SECONDS (10.1-12.7)
[2023-03-04] MEDS: FUROSEMIDE 40 MG/4 ML VIAL IV ×2 (03:58→14:47)
[2023-03-04] MEDS: cefTRIAXone 1,000 MG in SODIUM CHLORIDE 0.9% 100 ML 200 MG IV (03:58)
[2023-03-04 03:59] LABS: PTT Partial Thromboplastin Tim 30 SECONDS (26-36)
[2023-03-04] MEDS: HEPARIN 5,000 UNIT/ML VIAL 5000 UNIT IV (03:59)
[2023-03-04] MEDS: ASPIRIN 81 MG CHEW TAB 324 MG PO (04:02)
[2023-03-04 04:04] LABS: Adenovirus Not Detected (Not Detect); B. parapertussis Not Detected (Not Detecte); Bordetella pertussis Not Detected (Not Detecte); Chlamydophila pneumoniae Not Detected (Not Detect); Coronavirus 229E Not Detected (Not Detect); Coronavirus HKU1 Not Detected (Not Detect); Coronavirus NL 63 Not Detected (Not Detect); Coronavirus OC43 Not Detected (Not Detect); Human Metapneumovirus Not Detected (Not Detect); Human Rhinovirus/Enterovirus Not Detected (Not Detect); Influenza A Not Detected (Not Detect); Influenza B Not Detected (Not Detect); Mycoplasma pneumoniae Not Detected (Not Detect); Parainfluenza Virus 1 Not Detected (Not Detect); Parainfluenza Virus 2 Not Detected (Not Detect); Parainfluenza Virus 3 Not Detected (Not Detect); Parainfluenza Virus 4 Not Detected (Not Detect); Respiratory Syncytial Virus Not Detected (Not Detect); SARS- CoV-2 Not Detected (Not Detecte)
[2023-03-04] MEDS: HEPARIN DRIP 25,000 UNIT/500 ML IV.SOLN 20 UNIT IV (04:09)
[2023-03-04] MEDS: AZITHROMYCIN 500 MG in DEXTROSE 5% IN WATER 250 ML 250 MG IV (04:51)
[2023-03-04 05:08] LABS: Creatine Kinase 604 U/L (55-170)
[2023-03-04 05:25] LABS: Troponin I 0.467 ng/mL (0.01-0.034)
--- NOTE | 2023-03-04 05:37 | DI.ECHO.S_ITS ---
[facility]---------+ [facility] +---------+ : : [address] : : : : [id number] : : : : Phone: [phone] : [phone] +---------+ Echocardiogram Report + + :Name: AIDAN PRAJAPATI Study Date: 03/04/2023 Height: 66 in : :[facility] ReadingLocation: Weight: 290 lb : : Gender: Male BSA: 2.3 m2 : :: 1965 Age: 57 yrs BP: 130/95 mmHg: :Reason For Study: CONGESTIVE HEART FAILURE, NSTEMI : :Ordering Physician: LICHA, : :CATHIE Performed By: Saray Jhaveri : :Referring: CATHIE HURT : + + Interpretation Summary The left ventricle is moderately dilated. Left ventricular ejection fraction is estimated to be 30 +/- 5%. There is severe global hypokinesis of the left ventricle. The right ventricle is at the upper limits of normal in size. The right ventricular systolic function is normal. The aortic valve is bicuspid. The aortic valve is severely calcified. The peak aortic velocity is 4.1 m/sec. The aortic valve mean gradient is 45 mmHg. The calculated aortic valve area is 0.58 cm2. sev ratio: 0.19 MUKESH indexed to BSA (cm^2/m^2): 0.28 There is severe-critical aortic stenosis. The ascending aorta is mild-moderately enlarged. The IVC is dilated (diameter is greater than 2.1 cm) and it collapses less than 50% with a sniff. This suggests a high right atrial pressure of 15 mm Hg. Procedure: A two-dimensional transthoracic echocardiogram with color flow and Doppler was performed. The study quality was technically difficult. There is no prior echocardiogram noted for this patient. A contrast injection of Definity was performed to improve assessment of LV function. The patient was in sinus tachycardia with heart rates between 114-122 bpm during the exam. Left Ventricle: The left ventricle is moderately dilated. The estimated left ventricular end diastolic volume is 215 ml. Left ventricular wall thickness is mildly increased. There is no thrombus. Left ventricular ejection fraction is estimated to be 30 +/- 5%. There is severe global hypokinesis of the left ventricle. Diastolic function could not be accurately assessed due to tachycardia. Right Ventricle: The right ventricle is at the upper limits of normal in size. The right ventricular systolic function is normal. Atria: The left atrium is moderately dilated. Right atrial size is normal. There is no Doppler evidence for an interatrial shunt. Mitral Valve: The mitral valve leaflets appear borderline thickened, but open well. There is mild mitral annular calcification. There is mild mitral regurgitation. Aortic Valve: The aortic valve is severely calcified. The aortic valve is bicuspid. There is severe aortic stenosis. The peak aortic velocity is 4.1 m/sec. The aortic valve mean gradient is 45 mmHg. The calculated aortic valve area is 0.58 cm2. No aortic regurgitation is present. Tricuspid Valve: The tricuspid valve is normal in structure and function. There is trace tricuspid regurgitation. Pulmonary artery pressures cannot be estimated because of the lack of a measurable TR jet velocity. Pulmonic Valve: The pulmonic valve is not well visualized. There is no pulmonic valvular regurgitation. Great Vessels: The aortic root is normal size. The ascending aorta is mild- moderately enlarged. The IVC is dilated (diameter is greater than 2.1 cm) and it collapses less than 50% with a sniff. This suggests a high right atrial pressure of 15 mm Hg. Pericardium/ Pleura There is no pericardial effusion. There is an anterior echo-free space consistent with a fat pad. There is no pleural effusion. MMode/2D Measurements & Calculations LVIDd: 6.3 cm LVOT diam: 2.1 cm LVIDs: 5.4 cm Ao root diam: 3.3 cm FS: 13.8 % asc Aorta Diam: 4.3 cm EPSS: 1.8 cm Ao Arch Diam (Prox Trans): 3.5 cm IVSd: 0.89 cm LVPWd: 1.2 cm LV sin. diameter/BSA (cm/m^2): 2.7 LV sys. diameter/BSA (cm/m^2): 2.3 LA A2 area: 27.1 cm2 RA long axis: 5.1 cm LA A4 area: 24.9 cm2 RA area: 16.6 cm2 LA length (vol): 6.1 cm RA vol: 46.2 ml LA vol: 93.8 ml RA : 19.7 ml/m2 LA vol index: 40.0 ml/m2 IVC diam: 2.3 cm RVD1 (basal): 4.2 cm TAPSE: 1.7 cm Doppler Measurements & Calculations Ao V2 max: 408.8 cm/sec LVOT Max Rian: 68.5 cm/sec Ao V2 mean: 327.8 cm/sec LV V1 max P.9 mmHg Ao max P.9 mmHg LV V1 VTI: 15.0 cm Ao mean P.4 mmHg MUKESH(I,D): 0.66 cm2 Ao V2 VTI: 79.0 cm MUKESH(V,D): 0.58 cm2 sev ratio: 0.19 MUKESH indexed to BSA (cm^2/m^2): 0.28 MV E max rian: 151.9 cm/sec PA V2 max: 97.7 cm/sec MV A max rian: 1.1 cm/sec PA V2 mean: 69.9 cm/sec MV E/A: 136.8 PA mean P.1 mmHg Med Peak E' Rian: 10.7 cm/sec PA pr(Accel): 34.5 mmHg E/E' med: 14.2 Lat Peak E' Rian: 15.6 cm/sec E/E' lat: 9.7 E/e' average: 12.0 MV dec time: 0.13 sec MVA(VTI): 1.9 cm2 MV V2 mean: 95.3 cm/sec SV(LVOT): 52.4 ml MV mean P.5 mmHg MV V2 VTI: 27.1 cm Reading Physician:09:26 AM
--- NOTE | 2023-03-04 06:19 | PC.NURSE ---
pt had a sress test about 1.[address] [facility] in [place]
--- NOTE | 2023-03-04 06:20 | PC.NURSE ---
Echo at bedside
--- NOTE | 2023-03-04 10:00 | PC.NURSE ---
Pt on minimal clear liquids. Given chicken broth, provider aware.
--- NOTE | 2023-03-04 10:04 | PC.NURSE ---
0945 pt O2 sat dropped to 88%. Placed on 2L O2 , sat improved to 94%
[2023-03-04 10:31] LABS: PTT Partial Thromboplastin Tim 35 SECONDS (26-36)
[2023-03-04 14:48] LABS: Add Manual Diff / Slide Review NO; Basophils Absolute Auto 100 /uL (0-100); Basophils Percent Auto 0.6 % (0-2); Eosinophils Absolute Auto 0 /uL (0-450); Hematocrit 40.9 % (41-53); Hemoglobin 13.9 g/dL (13.5-17.5); Lymphocytes Absolute Auto 1000 /uL (1100-4500); Lymphocytes Percent Auto 11.7 % (25-40); Mean Corpuscular Volume 82.1 fL (80-100); Monocytes Absolute Auto 200 /uL (0-900); Monocytes Percent Auto 2.5 % (3-14); Neutrophils Absolute Auto 7500 /uL (1500-7000); Neutrophils Percent Auto 85.2 % (50-75); Platelet Count 361 X10^3/uL (150-400); Red Blood Cell Count 4.97 X10^6/uL (4.5-5.9); Red Cell Distribution Width 13.7 % (11.6-14.8); White Blood Cell Count 8.8 X10^3/uL (4.5-11.0)
[2023-03-04 15:01] LABS: BUN Creatinine Ratio 14.7 (6-22); Blood Urea Nitrogen 10 mg/dL (9-20); Calcium 8.7 mg/dL (8.4-10.2); Carbon Dioxide 26 mmol/L (22-32); Chloride 97 mmol/L (98-107); Estimated Glomerular Filt Rate > 60 mL/min (>60); Glucose 240 mg/dL (70-100); HEMOLYSIS < 15 (0-50); Sodium 133 mmol/L (137-145)
[2023-03-04 15:38] LABS: Troponin I 0.652 ng/mL (0.01-0.034)
[2023-03-04 16:45] LABS: PTT Partial Thromboplastin Tim 35 SECONDS (26-36)
--- NOTE | 2023-03-04 16:49 | PC.NURSE ---
Nurse to Nurse report given to January RN @ [facility] Muniz @ [phone]. States she will call back once bed has been assigned for ETA. Charge aware.
[2023-03-04] MEDS: diazePAM 5 MG TABLET PO (19:04)
[2023-03-04] MEDS: ACETAMINOPHEN 325 MG TABLET 650 MG PO (19:04)
== END 2023-03-04 20:16 | disposition short-term general hospital (02) ==
PROVIDERS: Emergency Medicine; Emergency Provider Emergency Medicine
DX: I21.4 Non-ST elevation (NSTEMI) myocardial infarction (principal); I50.9 Heart failure, unspecified; I35.0 Nonrheumatic aortic (valve) stenosis; R91.1 Solitary pulmonary nodule
CPT/HCPCS: 36415; 71045; 71275; 80048; 80053; 82550; 83690; 83735; 83880; 84145; 84484; 85025; 85610; 85730; 87633; 93005; 96365; 96366; 96368; 96375; 96376; 99285; 99291; C8929; J0696; J1644; J1940; J2930; Q9957; Q9967